=== PATIENT | male | born 1975 | race Caucasian/White ===

== ENCOUNTER 2023-09-17 16:09 | Emergency (ER) | payer OTHER ==
[~2023-09-17] VITALS: Ht 175.3 cm; Wt 104.0 kg
[2023-09-17] MEDS ORDERED: KETOROLAC TROMETHAMINE 30 MG/ML SDV IV ONE (16:15)
[2023-09-17 16:19] VITALS: BP 152/92
[2023-09-17 16:30] VITALS: BP 142/102
[2023-09-17] MEDS ORDERED: METHOCARBAMOL500 MG PO (17:31)
[2023-09-17] MEDS ORDERED: NAPROXEN500 MG PO (17:31)
[2023-09-17 17:39] VITALS: BP 142/102
== END 2023-09-17 17:50 | disposition home or self-care (01) | DRG 552 ==
LOC: ED 16:09
DX: S16.1XXA Strain of muscle, fascia and tendon at neck level, initial encounter (principal); S09.90XA Unspecified injury of head, initial encounter; V89.2XXA Person injured in unspecified motor-vehicle accident, traffic, initial encounter